=== PATIENT | female | born 1995 | race Caucasian/White ===

== ENCOUNTER 2017-04-08 10:09 | Emergency (ER) | payer BC ==
[2017-04-10 07:00] LABS: URINE HCG POC HCG NEGATIVE (Negative)
== END 2017-04-08 12:14 | disposition home or self-care (01) ==
LOC: ER 10:09
DX: T19.2XXA Foreign body in vulva and vagina, initial encounter (principal); X58.XXXA Exposure to other specified factors, initial encounter; Y93.89 Activity, other specified; Y92.89 Other specified places as the place of occurrence of the external cause; Y99.8 Other external cause status
CPT/HCPCS: 81025; 99284

== ENCOUNTER 2019-01-30 11:18 | Emergency (ER) | payer BC, OTHER ==
[~2019-01-30] VITALS: Ht 157.5 cm; Wt 104.3 kg
[2019-01-30 12:19] VITALS: BP 133/56
[2019-01-30] MEDS ORDERED: AMOX875T PO (12:22)
--- NOTE | 2019-01-30 12:22 | PHYS DOC ---
Past Medical History Past Medical History: No Pertinent History Past Surgical History: No Surgical History Alcohol Use: Occasionally Drug Use: None Adult General Chief Complaint Chief Complaint: EARACHE/EAR PAIN HPI HPI Patient is a 23 year old female who presents to the ED today with bilateral ear pain that began one and a half weeks ago. Patient states the left ear is worse than the right. Rates the pain is mild. Denies any fever, cough, congestion. Review of Systems Review of Systems Constitutional: Denies fever or chills [] Eyes: Denies change in visual acuity, redness, or eye pain [] HENT: Reports bilateral ear pain. Denies nasal congestion or sore throat [] Respiratory: Denies cough or shortness of breath [] Cardiovascular: No additional information not addressed in HPI [] GI: Denies abdominal pain, nausea, vomiting, bloody stools or diarrhea [] : Denies dysuria or hematuria [] Musculoskeletal: Denies back pain or joint pain [] Integument: Denies rash or skin lesions [] Neurologic: Denies headache, focal weakness or sensory changes [] All other systems were reviewed and found to be within normal limits, except as documented in this note. Allergies Allergies Allergies Coded Allergies Type Severity Reaction Last Updated Verified No Known Drug Allergies 04/07/15 No Physical Exam Physical Exam Constitutional: Well developed, well nourished, no acute distress, non-toxic appearance. [] HENT: Normocephalic, atraumatic, bilateral external ears normal, oropharynx moist, no oral exudates, nose normal. Bilateral TM are mildly injected left worse than right. Eyes: PERRLA, EOMI, conjunctiva normal, no discharge. [] Neck: Normal range of motion, no tenderness, supple, no stridor. [] Cardiovascular:Heart rate regular rhythm, no murmur [] Lungs & Thorax: Bilateral breath sounds clear to auscultation [] Abdomen: Bowel sounds normal, soft, no tenderness, no masses, no pulsatile masses. [] Skin: Warm, dry, no erythema, no rash. [] Back: No tenderness, no CVA tenderness. [] Extremities: No tenderness, no cyanosis, no clubbing, ROM intact, no edema. [] Neurologic: Alert and oriented X 3, normal motor function, normal sensory function, no focal deficits noted. [] Psychologic: Affect normal, judgement normal, mood normal. [] EKG EKG [] Radiology/Procedures Radiology/Procedures [] Course & Med Decision Making Course & Med Decision Making Pertinent Labs and Imaging studies reviewed. (See chart for details) This is a 23-year-old female patient presented to the ED today with otitis media. Discharged on amoxicillin. Tylenol/Motrin for pain or fever. Dragon Disclaimer Dragon Disclaimer This electronic medical record was generated, in whole or in part, using a voice recognition dictation system. Departure Departure Impression: Primary Impression: Otitis media Disposition: 01 HOME, SELF-CARE Condition: STABLE Referrals: NO PCP (PCP) Patient Instructions: Otitis Media, Adult, [id number] Additional Instructions: You were seen for in the Ed for an ear infection, please complete your antibiotics. Take Tylenol or Motrin for pain or fever. Scripts Amoxicillin (AMOXICILLIN) 875 Mg Tablet 1 TAB PO BID, #20 TAB Prov: SAL THOMPSON APRN 01/30/19 Problem Qualifiers Primary Impression: Otitis media Otitis media type: other nonsuppurative Chronicity: acute Laterality: bilateral Recurrence: non-recurrent Qualified Codes: H65.193 - Other acute nonsuppurative otitis media, bilateral SAL THOMPSON [employer] Jan 30, 2019 12:22
== END 2019-01-30 12:38 | disposition home or self-care (01) ==
LOC: ER 11:18
DX: H65.193 Other acute nonsuppurative otitis media, bilateral (principal)
CPT/HCPCS: 99283

== ENCOUNTER 2019-02-16 08:39 | Emergency (ER) | payer OTHER ==
[~2019-02-16] VITALS: Ht 157.5 cm; Wt 101.6 kg
[~2019-02-16 08:39] MED LIST: AMOX875T PO
[2019-02-16 08:46] VITALS: BP 158/88
[2019-02-16] MEDS ORDERED: AMOX875T PO (09:34)
--- NOTE | 2019-02-16 09:34 | PHYS DOC ---
Past Medical History Past Medical History: No Pertinent History Past Surgical History: Other Additional Past Surgical Histo: colonoscopy Alcohol Use: Rarely Drug Use: None Adult General Chief Complaint Chief Complaint: EARACHE/EAR PAIN HPI HPI Patient is a 23 year old female who presents with cough, sore throat, congestion, runny nose, fever this been ongoing since Monday. Patient was running 102.3 temperature on arrival to the ER today. Patient took Tylenol around 8:00 this morning. The patient also states that her bilateral ears been hurting. Denies any medical history. Review of Systems Review of Systems Constitutional: Reports fever or chills [] Eyes: Denies change in visual acuity, redness, or eye pain [] HENT: Reports nasal congestion, runny nose, and sore throat. Reports bilateral ear pain. Respiratory: Reports cough. Cardiovascular: No additional information not addressed in HPI [] GI: Denies abdominal pain, nausea, vomiting, bloody stools or diarrhea [] : Denies dysuria or hematuria [] Musculoskeletal: Denies back pain or joint pain [] Integument: Denies rash or skin lesions [] Neurologic: Denies headache, focal weakness or sensory changes [] Endocrine: Denies polyuria or polydipsia [] Complete systems were reviewed and found to be within normal limits, except as documented in this note. Current Medications Current Medications Current Medications Medications (Trade) Dose Ordered Sig/Jacquie Start Time Stop Time Status Last Admin Dose Admin Ondansetron HCl (Zofran Odt) 4 mg 1X STAT 02/16/19 09:44 02/16/19 10:01 DC 02/16/19 10:03 4 MG Allergies Allergies Allergies Coded Allergies Type Severity Reaction Last Updated Verified No Known Drug Allergies 04/07/15 No Physical Exam Physical Exam Constitutional: Well developed, well nourished, no acute distress, non-toxic appearance. [] HENT: Normocephalic, atraumatic, bilateral external ears normal, bilateral tympanic membrane erythema and bulging, tonsils are 2/4 with erythema, oropharynx moist, no oral exudates, nose turbinates inflamed. Eyes: PERRLA, EOMI, conjunctiva normal, no discharge. [] Neck: Normal range of motion, no tenderness, supple, no stridor. [] Cardiovascular:Heart rate regular rhythm, no murmur [] Lungs & Thorax: Bilateral breath sounds clear to auscultation [] Abdomen: Bowel sounds normal, soft, no tenderness, no masses, no pulsatile masses. [] Skin: Warm, dry, no erythema, no rash. [] Back: No tenderness, no CVA tenderness. [] Extremities: No tenderness, no cyanosis, no clubbing, ROM intact, no edema. [] Neurologic: Alert and oriented X 3, normal motor function, normal sensory function, no focal deficits noted. [] Psychologic: Affect normal, judgement normal, mood normal. [] Current Patient Data Vital Signs Vital Signs Date Time Temp Pulse Resp B/P (MAP) Pulse Ox O2 Delivery O2 Flow Rate FiO2 02/16/19 08:46 99.6 116 20 158/88 (111) 97 Room Air 99.6 Lab Values Laboratory Tests Test 02/16/19 09:41 Influenza Type A Antigen Negative (NEGATIVE) Influenza Type B Antigen Positive (NEGATIVE) EKG EKG [] Radiology/Procedures Radiology/Procedures [] Course & Med Decision Making Course & Med Decision Making Pertinent Labs and Imaging studies reviewed. (See chart for details) Has otitis media. Will place on Amoxicillin. Will also check for Flu. Influenza B is positive. Will prescribe Zofran, Tessalon Perles, and have patient take supportive [id number] medicines. Dragon Disclaimer Dragon Disclaimer This electronic medical record was generated, in whole or in part, using a voice recognition dictation system. Departure Departure Impression: Primary Impression: Otitis media Additional Impression: Influenza B Disposition: 01 HOME, SELF-CARE Condition: STABLE Referrals: NO PCP (PCP) Patient Instructions: Otitis Media, Adult Additional Instructions: Thank you for visiting [facility]. We appreciate you trusting us with your care. If any additional problems come up don't hesitate to return to visit us. Please follow up with your primary care provider so they can plan additional care if needed and know about the problem that you had. If symptoms worsen come back to the Emergency Department. Any concerning symptoms that start such as chest pain, shortness of air, weakness or numbness on one side of the body, running high fevers or any other concerning symptoms return to the ER. Please fill your medications at any pharmacy and follow the prescription instructions. You have been prescribed an antibiotic today to help fight your infection. Please take all of the antibiotic as directed. If after 48 hours the infection is not improving, please return for more care. If the infection worsens, return to ER for additional care. Please return to the ER if you start running high fevers and or unable to control with Tylenol and ibuprofen, or are unable to keep fluids down at home. Please take Zyrtec, and Mucinex over the counter per label instructions. Scripts Benzonatate (TESSALON PERLE) 100 Mg Capsule 1 CAP PO TID PRN for COUGH, #21 CAP Prov: JOHN JOSUE APRN 02/16/19 Ondansetron (ONDANSETRON ODT) 4 Mg Tab.rapdis 1 TAB PO PRN Q6-8HRS PRN for NAUSEA, #16 TAB Prov: JOHN JOSUE APRN 02/16/19 Amoxicillin (AMOXICILLIN) 875 Mg Tablet 1 TAB PO BID for 7 Days, #14 TAB Prov: JOHN JOSUE APRN 02/16/19 Problem Qualifiers Primary Impression: Otitis media Otitis media type: serous Chronicity: acute Laterality: bilateral Recurrence: not specified as recurrent Qualified Codes: H65.03 - Acute s erous otitis media, bilateral JOHN JOSUE APRN Feb 16, 2019 09:34
[2019-02-16] MEDS ORDERED: ONDANSETRON ODT 4 MG TAB.RAPDIS. PO STA (09:44)
[2019-02-16 10:17] LABS: INFLUENZA A PATIENT NEGATIVE (NEGATIVE)
[2019-02-16 10:18] LABS: INFLUENZA B PATIENT POSITIVE (NEGATIVE)
[2019-02-16] MEDS ORDERED: BENZ100C PO (10:30)
[2019-02-16] MEDS ORDERED: ONDA4TAB12 PO (10:30)
== END 2019-02-16 10:40 | disposition home or self-care (01) ==
LOC: ER 08:39
DX: J10.1 Influenza due to other identified influenza virus with other respiratory manifestations (principal); H65.03 Acute serous otitis media, bilateral
CPT/HCPCS: 87804; 99284; Q0162